=== PATIENT | male | born 1995 | race Caucasian/White ===

== ENCOUNTER 2024-11-12 | Emergency (ER) | payer MEDICAID, SELFPAY ==
[2024-11-12] VITALS: BP 131/90; PULSE 85; RESP 15; TEMP 36.8; O2SAT 99; BMI 20.9
--- NOTE | 2024-11-12 00:22 | EKG12_ITS ---
Test Reason : CP Blood Pressure : */* mmHG Vent. Rate : 75 BPM Atrial Rate : 75 BPM P-R Int : 156 ms QRS Dur : 96 ms QT Int : 346 ms P-R-T Axes : 74 97 73 degrees QTcB Int : 386 ms Normal sinus rhythm with sinus arrhythmia Rightward axis ST elevation, consider early repolarization, pericarditis, or injury Abnormal ECG Confirmed by CLARISSE PERRY, SHYANN ([id number]), proposal editor JAI RUDD ([id number]) on 11/12/2024 8:37:01 AM Referred By: REGLA Confirmed By: SHYANN ROBB MD
[2024-11-12 00:47] LABS: Hematocrit 41.3 % (40-54); Hemoglobin 14.0 g/dL (13.0-16.5); Immature Granulocytes Count 0.020 X10^3/uL (0.0-0.0); Mean Corp Hgb Conc 33.9 g/dL (32-36); Mean Corpuscular Volume 83.8 fL (80-94); Mean Platelet Vol. 9.2 fl (6.2-12.0); NRBC Flagged by Analyzer 0 % (0-5); Platelet Count 245 K/mm3 (150-450); RBC Distribution Width CV 12.1 % (11.6-14.6); RBC Distribution Width SD 36.4 fl (35.1-43.9); Red Blood Count 4.93 M/mm3 (4.6-6.2); White Blood Count 8.8 K/mm3 (4.4-11.0)
[2024-11-12] MEDS: Ketorolac 30 MG/ML Syringe IV (00:59)
[2024-11-12 01:00] VITALS: BP 130/92; PULSE 64; RESP 19
[2024-11-12 01:03] LABS: Anion Gap 15 (5-15); BUN 10 mg/dL (4-19); BUN/Creat Ratio 9.7 RATIO (10-20); Calcium,Total 9.4 mg/dL (7.6-11.0); Carbon Dioxide 23.9 mmol/L (21.0-32.0); Chloride 101 mmol/L (98-108); Estimated Creatinine Clearance 112.33 ml/min (50-250); Glucose 140 mg/dL (70-99); Magnesium 2.0 mg/dL (1.5-2.2); Potassium 3.5 mmol/L (3.3-5.1); Troponin T High Sensitivity < 6 ng/L (<=22)
--- NOTE | 2024-11-12 01:10 | RAD_ITS ---
PROCEDURE: RIBS UNI MIN 3V W/PA CHEST 11/12/2024 REASON FOR EXAM: PAIN TECHNIQUE: RIBS UNI MIN 3V W/PA CHEST COMPARISON: No FINDINGS: Normal heart size. Well inflated lungs. No consolidation, effusion, or pneumothorax. There is a suspected lateral right-sided 7th and 8th rib fracture, not well seen. Correlate with symptoms. RAD/Ribs Uni Min 3V w/PA Chest IMPRESSION: Suspected right 7th and 8th rib fracture. Correlate with symptoms. Reading Location: [facility]-
[2024-11-12 01:50] VITALS: BP 130/92; PULSE 59; RESP 16; TEMP 36.8; O2SAT 99
[2024-11-12 01:51] VITALS: BP 130/92; PULSE 59; RESP 16
--- NOTE | 2024-11-12 01:53 | EDS_ITS ---
HPI History of Present Illness Chief Complaint: Chest Pain Informant: patient and spouse/S.O. Narrative Narrative: Patient is a 29-year-old male who reports no significant past medical history. 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 He states that this evening while at work he fell and landed on his right side. He states that he injured his ribs and has had pain with breathing and motion. He denies striking his head or any loss of consciousness. He denies any blood thinner use. He states that with concern for underlying injury or potential infection based on the small lesion to his scalp he presents for evaluation. [facility] Medical History (Updated 11/12/24 @ 01:[address] Brad Rosales, DO) Back pain Home Medications ?Medication ?Instructions ?Recorded ?Last Taken ?Type oxycodone-acetaminophen 5 mg-325 1 tab PO Q6H PRN pain 5 days #20 11/12/24 Unknown Rx mg tablet (Percocet) tabs Allergy/AdvReac Type Severity Reaction Status Date / Time Penicillins (PCN) Allergy Angioedema Verified 11/12/24 00:03 Social History Smoking Status: Current every day smoker tobacco type: cigarettes ROS ROS ED Constitutional Constitutional ED: Denies chills or fever(s) Eyes Eyes: Denies blurry vision or change in vision ENT ENT ED: Denies rhinorrhea or sore throat Cardiovascular Cardiovascular: Reports chest pain and other Details: Negative syncope ; Denies palpitations or racing heartbeat Respiratory/Chest Respiratory/Chest: Denies cough or dyspnea Gastrointestinal Gastrointestinal: Denies abdominal pain, diarrhea, nausea or vomiting Musculoskeletal Musculoskeletal: Denies back pain or neck pain Integumentary Reports other Details: Positive scalp lesion Neurologic Neurologic: Denies headache(s) Hematologic/Lymphatic Hematologic/Lymphatic: Denies easy bleeding or easy bruising EXAM Physical Exam Const Vital Signs: 11/12/24 00:00 11/12/24 01:00 11/12/24 01:50 Temperature 98.2 F 98.2 F Temperature Source Oral Pulse Rate 85 64 59 L Respiratory Rate 15 19 H 16 Blood Pressure 131/90 H 130/92 H 130/92 H Blood Pressure Mean 103 104 104 Pulse Ox 99 99 Oxygen Delivery Method Room Air 11/12/24 01:51 Temperature Temperature Source Pulse Rate 59 L Respiratory Rate 16 Blood Pressure 130/92 H Blood Pressure Mean 104 Pulse Ox Oxygen Delivery Method Positive well nourished and well developed General Appearance ED: well developed; Negative for pallor HEENT HEENT Narrative: Normocephalic atraumatic There is 1/2 cm circular semifirm and movable lesion along the left occipital portion of the scalp most consistent with lipoma; no overlying erythema or warmth. No vesicular or pustule changes. Eyes PERRL and EOMs intact bilaterally General Eye ED: Negative for scleral icterus Neck supple and no JVD Chest Wall Chest Narrative: There is reproducible pain with palpation along the right anterior lateral ribs region 6-9 without obvious bony deformity or subcutaneous emphysema Resp normal respiratory effort and clear to auscultation bilaterally Cardio regular rate and regular rhythm Rate: other Other Details: Regular rate and rhythm without murmurs rubs or gallop Radial and carotid pulses are equal and symmetric Extremity normal to inspection Extremity Narrative: No asymmetric edema no pitting edema negative Homans' sign bilaterally Neuro oriented x3, CN's II-XII intact bilaterally and no sensory deficits noted Sensorium / Orientation: alert Motor Exam: strength 5/5 throughout Psych mental status grossly normal Skin no rashes or lesions noted Skin Narrative: Soft tissue lesion to the left occipital portion of the scalp consistent with lipoma without surrounding secondary findings of infection General Skin Exam: Negative for jaundice or pallor MDM MDM MDM Narrative Medical decision making narrative: Patient arrived to the ER with stable vitals. He reported a lesion to his scalp have been present for quite some time but he is felt like it was worsening in size and pain. He also had concerned that his chest discomfort could be cardiac in nature even though there is reproducible chest wall pain and report of discomfort status post fall. Differential diagnosis is for ACS versus cardiac dysrhythmia versus rib contusion versus rib fracture versus pneumothorax. History and exam indicate he has a rib contusion or fracture based on reproducible pain and report of fall. A troponin was obtained as well as EKG secondary to concern for ACS. EKG revealed no ischemic findings and his troponin is less than 6 going against ACS. Blood work revealed no signs of acute kidney injury or clinically significant electrolyte abnormality. Chest x- ray revealed no signs of pneumothorax but there were findings consistent with a right 7th and 8th rib fracture which correlates with his history and exam. At this time he is not in respiratory distress he is not hypoxic his pain is tolerable and he does not have a pneumothorax so there is no need for further intervention regarding his rib fractures. The lipoma has no findings of infection and is most likely incidental and therefore there is no need for further intervention of this lesion as well. With workup showing no signs of acute kidney injury or significant lab abnormality and patient having the reason for his chest discomfort and the fact he has a rib fracture he can be given symptomatic medications and is otherwise safe for discharge History & Record Review Discussion w/independent historian: Patient and Significant other Lab Data Attestation: I reviewed the patient's lab results. Labs: Laboratory Results - last 24 hr 11/12/24 00:10 WBC 8.8 RBC 4.93 Hgb 14.0 Hct 41.3 MCV 83.8 MCH 28.4 MCHC 33.9 RDW Std Deviation 36.4 RDW Coeff of Zeeshan 12.1 Plt Count 245 MPV 9.2 Immature Gran % (Auto) 0.200 Neut % (Auto) 50.2 Lymph % (Auto) 37.4 Milam % (Auto) 10.0 Eos % (Auto) 1.5 Baso % (Auto) 0.7 Absolute Neuts (auto) 4.4 Absolute Lymphs (auto) 3.29 Nucleated RBC % 0 Sodium 139 Potassium 3.5 Chloride 101 Carbon Dioxide 23.9 Anion Gap 15 BUN 10 Creatinine 1.00 Estim Creat Clear Calc 112.33 Est GFR (MDRD) Non-Af 103 BUN/Creatinine Ratio 9.7 L Glucose 140 H Calcium 9.4 Magnesium 2.0 Troponin T High Sens < 6 Radiography Diagnostic Testing: Clinical Impression(s) from Imaging Studies Ribs w/Chest X-Ray 11/12/24 01:10 IMPRESSION: Suspected right 7th and 8th rib fracture. Correlate with symptoms. Reading Location: [facility] Right rib series with 1 view chest as interpreted by the emergency medicine physician reveals a right 7th and 8th rib fracture without pneumothorax or infiltrate Discharge Plan Triage Chief Complaint: Chest Pain ED Provider: Brad Rosales Dx/Rx/DC Orders Clinical Impression: Right rib fracture, Lipoma of scalp Instructions: ED Rib Fracture, ED Lipoma Prescriptions: New oxycodone-acetaminophen [Percocet] 5-325 mg tablet 1 tab PO Q6H PRN (Reason: pain) 5 Days Qty: 20 0RF Stand Alone Forms: Work / School Excuse Primary Care Provider: Care Physician,No Primary Referrals: Brandon Abdi MD [Med Staff - Active Staff] - Care Physician,No Primary [Primary Care Provider] - Activity Restrictions/Additional Instructions: Your workup today showed no sign of abnormal heart rhythm or heart damage. Your rib pain is due to fractures to the 7th and 8th rib. This will take on average 4 to 6 weeks to heal. Please take the prescribed pain medication as directed to help control your symptoms. Make sure you are taking deep breaths in order to prevent the development of pneumonia. The small bump to your scalp is a benign skin lesion known as a lipoma and you can talk to a courier driver about potentially removing the lesion if it continues to create issues. Please return to the ER should you have any further concerns. Print Language: Spanish Disposition Disposition: Home, Self Care Discharge Date/Time: 11/12/24 02:02
== END 2024-11-12 02:02 | disposition home or self-care (01) ==
PROVIDERS: Emergency Provider Emergency Medicine; Visit Provider Emergency Medicine
DX: S22.41XA Multiple fractures of ribs, right side, initial encounter for closed fracture (principal); Y99.0 Civilian activity done for income or pay; F17.210 Nicotine dependence, cigarettes, uncomplicated; D17.0 Benign lipomatous neoplasm of skin and subcutaneous tissue of head, face and neck; W19.XXXA Unspecified fall, initial encounter
CPT/HCPCS: 71101; 80048; 83735; 84484; 85025; 93005; 96374; 99284; A4216

== ENCOUNTER 2024-11-17 09:45 | Emergency (ER) | payer MEDICAID, SELFPAY ==
[2024-11-17 09:45] VITALS: BP 113/83; PULSE 75; RESP 14; TEMP 36.3; O2SAT 98; BMI 17.1
--- NOTE | 2024-11-17 10:10 | EX.ED.DYSGE1 ---
HPI History of Present Illness Chief Complaint: Chest Other Informant: patient Narrative Narrative: 29-year-old male presents for recheck of right sided rib fractures that occurred a week ago. 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 He denies any dyspnea, new injuries, blood in his stool, nausea or vomiting, or other new symptoms. Patient states he injured his ribs by falling while at work but had been smoking weed and so for those reasons is not filing under Worker's Comp. and for that reason is not following up with Worker's Comp. He does not have a primary care physician. [facility] Medical History (Updated 11/17/24 @ 10:[address] Kelton Rodgers MD) Back pain Home Medications ?Medication ?Instructions ?Recorded ?Last Taken ?Type oxycodone-acetaminophen 5 mg-325 1 tab PO Q6H PRN pain 5 days #20 11/12/24 Unknown Rx mg tablet (Percocet) tabs Allergy/AdvReac Type Severity Reaction Status Date / Time Penicillins (PCN) Allergy Angioedema Verified 11/17/24 09:45 Social History Smoking Status: Current every day smoker tobacco type: cigarettes ROS ROS ED Constitutional Constitutional ED: Denies chills or fever(s) Eyes Eyes: Denies change in vision or diplopia ENT ENT ED: Denies rhinorrhea or sore throat Cardiovascular Cardiovascular: Denies chest pain or palpitations Respiratory/Chest Respiratory/Chest: Reports other Details: Right lower lateral rib pain ; Denies cough or dyspnea Gastrointestinal Gastrointestinal: Denies abdominal pain, diarrhea, nausea or vomiting Genitourinary Genitourinary ED: Denies dysuria or hematuria Musculoskeletal Musculoskeletal: Denies back pain or neck pain Integumentary Denies abscess or rash Neurologic Neurologic: Denies headache(s), paresthesias or weakness Psychiatric Psychiatric: Denies anxiety or suicidal thoughts EXAM Physical Exam Const Vital Signs: 11/17/24 09:45 Temperature 97.3 F L Temperature Source Temporal Pulse Rate 75 Respiratory Rate 14 Blood Pressure 113/83 H Blood Pressure Mean 93 Pulse Ox 98 Oxygen Delivery Method Room Air Positive well nourished and well developed General Appearance ED: well developed and NAD HEENT Reports moist mucous membranes normocephalic and atraumatic Eyes PERRL and EOMs intact bilaterally Neck full ROM and supple Chest Wall Chest Narrative: Tenderness right lower lateral rib cage. No crepitance, no subcu emphysema. No step-off. No flail. No splinting with deep inspiration. Equal breath sounds bilaterally. Resp normal respiratory effort and clear to auscultation bilaterally Cardio regular rate, regular rhythm and no murmurs GI non-tender and non-distended Auscultation: normoactive bowel sounds Palpation: soft Back/Spine no CVA tenderness General Back: other FROM Extremity normal to inspection General Extremety ED: Negative for edema, pulses abnormal or tenderness General Extremity: Negative for edema or pulses abnormal Neuro oriented x3, CN's II-XII intact bilaterally and no sensory deficits noted Sensorium / Orientation: awake and alert Motor Exam: strength 5/5 throughout Skin no rashes or lesions noted and no wounds MDM MDM MDM Narrative Medical decision making narrative: Patient is about a week out from these rib fractures. He states he is here for repeat x-rays. I advised him that it is not necessary or indicated, as a matter fact he would not need repeat x-rays likely unless he has new injury or new symptoms suggesting a complication which he does not have right now. I advised him that it can take 4-6 weeks for bones including ribs to heal, and to expect to be in pain like this for about 2 weeks after the injury. He is amenable to getting another 5 days off of work and then trying to return full duty. History & Record Review Additional record(s) reviewed:: Prior labs (X-rays showing probable 7th and 8th rib fractures on the right) Discharge Plan Triage Chief Complaint: Chest Other ED Provider: Kelton Rodgers Dx/Rx/DC Orders Clinical Impression: Multiple fractures of ribs, right side, sequela, Encounter to obtain excuse from work Instructions: ED Rib Fracture Prescriptions: No Action oxycodone-acetaminophen [Percocet] 5-325 mg tablet 1 tab PO Q6H PRN (Reason: pain) 5 Days Qty: 20 0RF Stand Alone Forms: ED Work / School Excuse Primary Care Provider: Care Physician,No [facility] - 10-14 Days if not better Print Language: Puerto Rican Disposition Disposition: Home, Self Care
[2024-11-17 10:22] VITALS: BP 115/75; PULSE 87; RESP 16; TEMP 36.7; O2SAT 99
== END 2024-11-17 10:32 | disposition home or self-care (01) ==
LOC: ED 10:29
PROVIDERS: Emergency Provider Emergency Medicine; Visit Provider Emergency Medicine
DX: S22.41XA Multiple fractures of ribs, right side, initial encounter for closed fracture (principal); F17.210 Nicotine dependence, cigarettes, uncomplicated; F12.90 Cannabis use, unspecified, uncomplicated; X58.XXXA Exposure to other specified factors, initial encounter
CPT/HCPCS: 99282